=== PATIENT | female | born 1995 | race Hispanic/Latino ===

== ENCOUNTER 2023-12-10 09:19 | Inpatient (IN) | payer BC ==
[2023-12-10 10:05] VITALS: BMI 24.8
[2023-12-10 10:20] LABS: Fetal Membranes Rupture No Membranes Rupture (No Rupture)
[2023-12-10] MEDS ORDERED: Carboprost 250 MCG/ML AMP IM PRN (11:25)
[2023-12-10] MEDS ORDERED: Misoprostol 200 MCG TAB PR PRN (11:25)
[2023-12-10] MEDS ORDERED: Tranexamic Acid 1,000 MG/10 ML VIAL IVP PRN (11:25)
[2023-12-10] MEDS ORDERED: Acetaminophen 500 MG TAB PO PRN (11:25)
[2023-12-10] MEDS ORDERED: Diphenoxylate HCl/Atropine Tablet PO PRN (11:25)
[2023-12-10] MEDS ORDERED: fentaNYL 50 mcg/mL 1 mL Vial SLOW IVP PRN (11:25)
[2023-12-10] MEDS ORDERED: Methylergonovine 0.2 MG/ML VIAL IM PRN (11:25)
[2023-12-10] MEDS ORDERED: Butorphanol Tartrate 1 MG/ML VIAL SLOW IVP PRN (11:25)
[2023-12-10] MEDS ORDERED: Ondansetron PF 4 MG/2 ML Vial IVP PRN ×2 (11:25→11:54)
[2023-12-10] MEDS ORDERED: hydrALAZINE 20 MG/ML VIAL SLOW IVP PRN ×3 (11:25→17:35)
[2023-12-10] MEDS ORDERED: Promethazine HCl 25 MG/ML VIAL IM PRN ×2 (11:25→11:54)
[2023-12-10] MEDS ORDERED: Lactated Ringer's 1,000 ML IV SCH (11:30)
[2023-12-10] MEDS ORDERED: Oxytocin 30 units/NS 500 ML 500 ML IV SCH (11:30)
[2023-12-10] MEDS ORDERED: fentaNYL/Ropivacaine Epidural 100 ML ONE (11:45)
[2023-12-10] MEDS ORDERED: Moisturizing Cream (Eucerin) 113 GM JAR TOP PRN (11:54)
[2023-12-10] MEDS ORDERED: Lactated Ringer's 500 ML IV PRN (11:54)
[2023-12-10] MEDS ORDERED: Acetaminophen 325 MG TAB PO PRN (11:54)
[2023-12-10] MEDS ORDERED: ePHEDrine Sulfate 50 MG/10 ML VIAL SLOW IVP PRN (11:54)
[2023-12-10] MEDS ORDERED: diphenhydrAMINE 50 MG/ML VIAL IVP PRN (11:54)
[2023-12-10] MEDS ORDERED: Naloxone HCl 0.4 mg/ml Vial IVP PRN ×2 (11:54)
[2023-12-10] MEDS ORDERED: Communication Order-Pharmacy FS SCH (12:00)
[2023-12-10 12:04] LABS: Hematocrit 37.7 % (34.9-44.5); Mean Corpuscular HGB CONC 34.5 g/dL (32.0-36.0); Mean Corpuscular Hemoglobin 28.8 pg (27.0-33.0); Mean Corpuscular Volume 83.4 fL (81.6-98.3); Mean Platelet Volume 9.6 fL (7.4-10.4); Platelet Count 259 10x3/uL (150-450); RBC Distribution Width 15.4 % (11.5-14.5); Red Blood Cell (RBC) Count 4.52 10x6/uL (3.90-5.03); White Blood Cell (WBC) Count 11.9 10x3/uL (3.5-10.5)
[2023-12-10] MEDS: fentaNYL 2 mcg/Ropivacaine 0.2% Epidural 100 ML CADD EPIDURAL SCH (12:25)
[2023-12-10 12:56] LABS: HBsAg Index 0.29 S/CO (0-0.99); Hep B Surf Ag - L&D Non-Reactive S/CO (NonReactive)
[2023-12-10 12:57] LABS: Syphilis Antibody Nonreactive (Nonreactive); Syphilis Antibody Index 0.04 S/CO (<1.00 Non-Reactive)
[2023-12-10] MEDS ORDERED: Bupivacaine 0.25% HCL 30 ML VIAL ONE (13:00)
[2023-12-10] MEDS ORDERED: Bupivacaine HCl 0.5%/Epinephrine 1:200,000/PF 30 ml Vial ONE (13:00)
[2023-12-10] MEDS ORDERED: Lanolin Ointment 7 GM TUBE TOP PRN (17:35)
[2023-12-10] MEDS ORDERED: HYDROcodone/Acetaminophen 5/325 mg Tablet PO PRN (17:35)
[2023-12-10] MEDS ORDERED: Milk Of Magnesia 30 ML UDCUP PO PRN (17:35)
[2023-12-10] MEDS ORDERED: Benzocaine-Menthol 82.5 ML CAN TOP PRN (17:35)
[2023-12-10] MEDS ORDERED: Bisacodyl 10 MG SUPP PR PRN (17:35)
[2023-12-10] MEDS: Ibuprofen 800 MG TAB PO SCH (22:00)
[2023-12-10] MEDS: Docusate 100 MG CAP PO SCH (22:00)
[2023-12-11] MEDS: Ferrous Sulfate 325 MG TAB PO SCH (08:44)
[2023-12-11 16:30] VITALS: BP 109/57; TEMP 97.9
== END 2023-12-11 19:55 | disposition home or self-care (01) | DRG 807 ==
LOC: CSHLD/OP 09:19 → CSHLD 14:48 → CSHPP 17:45
PROVIDERS: ADMIT Family Medicine; ATTEND Family Medicine
PROC: 10E0XZZ Delivery of Products of Conception, External Approach (ICD-10-PCS; principal; 2023-12-10)
PROC: 0HQ9XZZ Repair Perineum Skin, External Approach (ICD-10-PCS; 2023-12-10)
DX: O42.02 Full-term premature rupture of membranes, onset of labor within 24 hours of rupture (principal); Z37.0 Single live birth; Z3A.39 39 weeks gestation of pregnancy; O70.0 First degree perineal laceration during delivery
CPT/HCPCS: 36415; 51702; 84112; 85027; 86780; 86850; 86900; 86901; 87340; 99285; J0665; J2590